=== PATIENT | female | born 1985 | race Caucasian/White ===

== ENCOUNTER 2016-08-22 17:03 | Emergency (ER) | payer BC ==
[2016-08-22] MEDS ORDERED: FLUORESCEIN 1 MG EYE STRIP LEFT EYE ONE (17:23)
[2016-08-22] MEDS ORDERED: TETRACAINE 0.5% - 2 ML EYE DROPS EACH EYE ONE (17:23)
[2016-08-22 17:24] VITALS: RESP 15; TEMP 97.4
--- NOTE | 2016-08-23 04:02 | PDOC ---
Eye Complaint HPI - General Chief Complaint: Eye Problem / Injury Stated Complaint: LEFT EYE RED Date Seen by Provider: 08/22/16 Time Seen by Provider: 17:15 Source: POSITIVE: Patient Exam Limitations: POSITIVE: No limitations Nurse's Notes Reviewed & Considered: Yes - History of Present Illness Initial Comments: The patient is a 31-year-old female. She states that for the past 2-3 days she has had bilateral conjunctival redness with some mucoid discharge from her left eye. 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 No known eye trauma. She has had preceding URI symptoms. No fevers or chills. No GI or symptoms or skin changes. Have you received a tetanus shot in the past 10 years?: No Location: Both Eyes (Left greater than right) Timing: REPORTS: Gradual, Getting Worse Duration: >24 hours (Approximately 2-1/2 days) Severity: Moderate Quality: REPORTS: "Pain" ("Irritation feeling"in both eyes, left greater than right) Recent Injury: REPORTS: No Associated Symptoms: REPORTS: Burning, Redness, Matting Context: REPORTS: Soft Contact Lenses, Falling Water Eye. DENIES: Foreign Body, Direct Trauma, Projectile Injury, Penetration Injury, Chemical Exposure, Eyes Washed at Scene, Welding Arc Exposure, Tanning Puentes Exposure, Wearing Reading Glasses , Wearing Protect. Glasses, Hard Contact Lenses, Recent Contact w/ Illness, Other Concurrent Injuries: DENIES: Neck, Head, Back, Chest, Abdomen, Extremities, Face , Other Modifying Factors: DENIES: Nothing Exacerbates, Exertion, Movement, Rest, Ice, Positioning, Nothing Relieves, Other Similar Symptoms Previously: No Recent Care Received: REPORTS: Denies Any Prior Injuries Related to Current Complaint?: No - Patient Home Medications Home Medications: Home Medications Multivitamin [Multivitamins] 1 each PO BID 08/22/16 Sulfacetamide Oph Soln 10% [Bleph 10 Ophth Soln] 5 ml OP Q4H #4 drops 08/22/16 - Patient Allergies Allergies/Adverse Reactions: Allergies Allergy/AdvReac Type Severity Reaction Status Date / Time Adhesive Bandage Allergy Intermediate RASH Verified 08/22/16 17:14 *RETIRED-01/28/12 [Adhesive Bandage *RETIRED-07/21/12] Past Medical History - heen HEENT History: Other (please comment) Additional HEENT History: WEARS GLASSES/CONTACT LENSES Cardiovascular History: Denies History Respiratory History: Denies History Gastrointestinal History: Denies History Genitourinary History: Denies History Endocrine History: Denies History Musculoskeletal History: Back Pain Prosthesis or Implant: No Neurological History: Motion Sickness Blood Disorders: Denies History Psychiatric History: Denies History History of Sexually Transmitted Diseases: No Female Reproductive History: Hysterectomy Additional Female Reproductive History: PARTIAL Cancer History: Denies History In Past Year Been Physically Harmed or Verbally Threatened: No (PER PATIENT) History of MDRO: No History of Other Communicable Diseases: No History of Exposure to Communicable Disease: No Tobacco Use: Never Smoker Alcohol Use: Occasionally Substance Use Type: None Previous Surgical History: Yes Type / Date of Surgery: PARTIAL HYSTERECTOMY Anesthesia Reactions: No Malignant Hyperthermia: No Family History of Malignant Hyperthermia: No Significant Family History: Asthma, Heart disease, Cancer, Diabetes Past Medical History Reviewed: Reviewed - No Changes ROS - Limitations ROS Limitations: No Limitations Constitution: REPORTS: Denies Symptoms Cardiovascular: REPORTS: Denies Cardiac Symptoms Respiratory: REPORTS: Denies Resp Symptoms Neurological: REPORTS: Denies Neuro Symptoms Gastrointestinal: REPORTS: Denies GI Symptoms Endocrine: REPORTS: Denies Symptoms Musculoskeletal: REPORTS: Denies MS Symptoms Genitourinary: REPORTS: Denies Symptoms Eyes: REPORTS: Red Eyes, Eye Drainage (Mucoid drainage from left eye) ENT: REPORTS: Other (Nasal congestion and mild cough recently) Skin: REPORTS: Denies Skin Symptoms Lympathic: REPORTS: Denies Lympathic Symptoms Immunologic: POSITIVE: Denies Symptoms Psychiatric: POSITIVE: Denies Psych Symptoms Eye Complaint Physical Exam - General Appearance General Appearance: POSITIVE: Alert, Cooperative, No Acute Distress, No Evidence of Trauma - Visual Acuity / Pupil Size Visual Acuity: 20/40: Left (with old glasses), 20/30: Right (with old glasses) Pupil Size: 3 mm: Bilateral (PERRLA) - HEENT Head / Face: POSITIVE: Atraumatic, Normal Inspection, No Facial Swelling Eyes: POSITIVE: PERRL, EOM's Intact, Eyelids Uninjured, Fluorescein Exam Normal , No Nystagmus, No Globe Trauma, Sclera Normal, Normal Corneal Inspection, Normal Fundoscopic Exam, Ant. Chamber Nml Inspect., Posterior Segments Normal. NEGATIVE: Conjunctivae Uninjured (Bilateral conjunctivitis) Ears: POSITIVE: Ears Normal Inspection, TM Normal Inspection, Auricle Normal, External Canal Normal Nose: POSITIVE: Inspection Normal, No Apparent Trauma, Nares Normal, No CSF Leak Oropharynx: POSITIVE: External Inspection Nml, Pharynx Inspect. Nml, Airway Intact, Voice Normal, Moist Mucous Membranes, No Oral Injury, Lips Normal, Gums Normal, No Drooling, No Thrush, Normal Gag Reflex Dental: POSITIVE: No Dental Injury - Skin Skin: POSITIVE: Normal Color, No Skin Rash - Neck / Back Neck/Back: POSITIVE: Normal Inspection, Non-Tender, Painless ROM - Respiratory / Cardiovascular Respiratory / CVS: POSITIVE: No Respiratory Distress, Breath Sounds Normal, Regular Rate/Rhythm, Heart Sounds Normal Peripheral Pulses: Radial (R): 2+, Radial (L): 2+ - Neurological / Psychological Neuro / Psych: POSITIVE: Oriented to Person, Oriented to Place, Oriented to Time , CN's Normal as Tested, Normal Speech, Normal Cognition, Appropriate Mood, Appropriate Affect Images - Eyes Eye: 1 - Conjunctivitis 2 - Conjunctivitis 3 - Conjunctivitis 4 - Conjunctivitis Procedures - Eye Procedure Procedure Note:: After topical anesthesia with Ophthaine, both lids everted; no foreign bodies seen. Anterior chambers are clear and pupils are equal and round and reactive to light and accommodation. Bilateral conjunctivitis noted without perilimbal flare, left greater than right. First seen staining showed no uptake. External ocular movements intact. Funduscopic examination normal. Eye Complaint Progress - Patient's Progress Pain Medication Addressed: POSITIVE: Yes (Recommended Advil or Tylenol) School/Work Release Addressed: POSITIVE: Yes (Work excuse for one day given) Re-Examine Time:: 17:45 Re-Examine Comment: Diagnosis and treatment of conjunctivitis discussed with patient Status: POSITIVE: Unchanged - Consult Counseled: POSITIVE: Patient, RE: DX, RE: Need for F/U Patient Care Time - Estimated PCT Patient Care Time (In Minutes): 22 Vital Signs - VS Reviewed Vital Signs Reviewed: Yes Discharge Clinical Impression: Conjunctivitis Discharge Disposition: Discharged to Home Condition: Stable Prescriptions / Orders: Sulfacetamide Oph Soln 10% [Bleph 10 Ophth Soln] 5 ml OP Q4H #4 drops Patient Instructions Given at Discharge: Conjunctivitis (ED) Additional Instructions: Sulfacetamide eye drops, 4 drops each eye every 4 hours while awake. Avoid close personal contact, has his condition is contagious. Wear your glasses and do not wear contacts until your eye has been back to normal for 10 days. Follow -up with your primary care provider or eye physician. Return here as necessary. Follow Up With: NONE,NONE [Primary Care Provider] - (Instructions as above. Return as necessary.)
== END 2016-08-22 18:00 | disposition home or self-care (01) ==
LOC: ER 17:03
DX: H10.33 Unspecified acute conjunctivitis, bilateral (principal)
CPT/HCPCS: 99282